=== PATIENT | female | born 1980 ===

== ENCOUNTER 2021-06-02 06:00 | Day surgery (SDC) | payer OTHER ==
[~2021-06-02 06:00] MED LIST: IRON PO
[2021-06-02] MEDS ORDERED: IBU600 MG PO (08:35)
== END 2021-06-02 13:30 | disposition home or self-care (01) ==
LOC: CIR.AMB 06:00
PROVIDERS: ATTEND Obstetrics & Gynecology Gynecology
DX: N72 Inflammatory disease of cervix uteri (principal); Z20.822 Contact with and (suspected) exposure to COVID-19